=== PATIENT | female | born 1980 | race Caucasian/White ===

== ENCOUNTER 2020-01-30 11:44 | Emergency (ER) | payer MEDICAID ==
[2020-01-30 12:23] VITALS: BP 128/83
--- NOTE | 2020-01-30 14:14 | ER Document Report ---
ED ENT - General Chief Complaint: Ear Pain Stated Complaint: EARACHE Time Seen by Provider: 01/30/20 14:00 Mode of Arrival: Ambulatory Information source: Patient Notes: Patient is a 39-year-old female comes emergency room complaining of left ear pain. For the past week patient has had in ear ache. 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 She denies going swimming. She has been using [id number] eardrops with no success to include peroxide. She denies any problems with her right ear. She has had no congestion or runny nose. No nausea vomiting or diarrhea. TRAVEL OUTSIDE OF THE [place] IN LAST 30 DAYS: No - HPI Patient complains to provider of: Ear problem Onset: Last week Onset/Duration: Gradual Quality of pain: Achy Severity: Moderate Pain Level: 3 Location of pain: Ears Associated symptoms: Ear pain, Ear drainage. denies: Runny nose, Sinus pain, Sinus drainage, Sore throat, Tinnitus Similar symptoms previously: Yes Recently seen / treated by doctor: No - Related Data Allergies/Adverse Reactions: No Known Allergies Allergy (Unverified 01/30/20 13:54) Home Medications: denies Past Medical History - General Information source: Patient - Social History Smoking Status: Current Every Day Smoker Cigarette use (# per day): Yes - 1 pack/day Chew tobacco use (# tins/day): No Smoking Education Provided: Yes Frequency of alcohol use: None Drug Abuse: None Family History: Reviewed & Not Pertinent Patient has homicidal ideation: No Past Surgical History: Reports: Hx Section - x4, Hx Cholecystectomy, Hx Hysterectomy, Hx Nose Surgery - nasal recon x3, Hx Orthopedic Surgery - ken carpal tunnel, Hx Tubal Ligation - x2 with reversal Review of Systems - Review of Systems Constitutional: No symptoms reported EENT: Ear pain, Ear discharge Cardiovascular: No symptoms reported Respiratory: No symptoms reported Gastrointestinal: No symptoms reported Genitourinary: No symptoms reported Female Genitourinary: No symptoms reported Musculoskeletal: No symptoms reported Skin: No symptoms reported Hematologic/Lymphatic: No symptoms reported Neurological/Psychological: No symptoms reported Physical Exam - Vital signs Vitals: Temp Pulse Resp BP Pulse Ox 99.5 F 100 20 128/83 H 100 01/30/20 12:22 01/30/20 12:22 01/30/20 12:01/30/20 12:01/30/20 12:22 Interpretation: Hypertensive - Notes Notes: PHYSICAL EXAMINATION: GENERAL: Well-appearing, well-nourished and in no acute distress. HEAD: Atraumatic, normocephalic. EYES: Pupils equal round and reactive to light, extraocular movements intact, conjunctiva are normal. ENT: Examination patient's head and upper airway show nasal mucosa be mildly erythematous and edematous with no rhinorrhea noted. No frontal or maxillary sinus tenderness to palpation. Examination patient's area of concern is her left ear. Patient displays minor amount of discomfort with palpation of the tragus as well as the auricle. Speculum exam shows that patient has some mild erythema throughout the external canal. There is no cerumen noticed at this time. There is a white East circumferential discharge clinging to the external canal with a mild odor it is difficult to ascertain in the extent of the TM although does not appear to have a perforation. And there is no bulging noted.. Further evaluation of the right ear shows it to be normal appearance TMs not bulging or retracted. NECK: Normal range of motion, supple without lymphadenopathy LUNGS: Breath sounds clear to auscultation bilaterally and equal. No wheezes rales or rhonchi. HEART: Regular rate and rhythm without murmurs PSYCH: Normal mood, normal affect. SKIN: Warm, Dry, normal turgor, no rashes or lesions noted. Course - Re-evaluation Re-evalutation: 01/30/20 14:14 Patient currently has no need for any type of ear flushing. We will start her on Ciprodex and she can follow-up with her PCP when she arrives back home. - Vital Signs Vital signs: Temp Pulse Resp BP Pulse Ox 99.5 F 100 20 128/83 H 100 01/30/20 12:01/30/20 12:01/30/20 12:01/30/20 12:01/30/20 12:22 Discharge - Discharge Clinical Impression: Otitis externa Qualifiers: Otitis externa type: diffuse Chronicity: acute Laterality: left Qualified Code(s): H60.312 - Diffuse otitis externa, left ear Condition: Stable Disposition: HOME, SELF-CARE Instructions: Use of Ear Drops ([facility]), Otitis Externa ([facility]) Additional Instructions: Home and keep the ear as clean and dry as possible. Try to avoid using a hairspring vibrator and do not use any more peroxide or other drops while with the antibiotic drops. You can take Tylenol or ibuprofen for pain and discomfort as well. You need to follow-up with your primary care on arrival back to your place of residence. May also suggest an ears nose and throat follow-up since this is been going on for a while. Should you have any concerns or problems goes return to ER for reevaluation. Prescriptions: Ciprofloxacin HCl/Dexameth [Ciprodex Otic Suspension 7.5 ml Bottle] 4 drop OT BID #1 bottle Forms: Elevated Blood Pressure, Smoking Cessation Education
== END 2020-01-30 14:20 | disposition home or self-care (01) ==
LOC: ER 11:44
DX: H60.312 Diffuse otitis externa, left ear (principal); H92.02 Otalgia, left ear; R09.81 Nasal congestion; R09.89 Other specified symptoms and signs involving the circulatory and respiratory systems; H92.12 Otorrhea, left ear; F17.210 Nicotine dependence, cigarettes, uncomplicated
CPT/HCPCS: 99282